=== PATIENT | female | born 1955 | race Caucasian/White ===

== ENCOUNTER 2019-11-17 16:25 | Emergency (ER) | payer MEDICARE ==
[~2019-11-17] VITALS: Ht 157.5 cm; Wt 60.3 kg
[2019-11-17] MEDS ORDERED: LIDOCAINE 1% 10 MG/ML, 20 ML MDV INJ ONE (19:15)
[2019-11-17] MEDS ORDERED: BACITRACIN 1 GM OINT TP ONE (19:15)
[2019-11-17] MEDS ORDERED: DIPH-TET-PERTUS Vaccine 0.5 ML VIAL (ADACEL) I.M. ONE (20:00)
[2019-11-17 21:05] VITALS: BP_SYST 126
== END 2019-11-17 21:05 | disposition home or self-care (01) ==
LOC: SED 16:25
DX: S61.215A Laceration without foreign body of left ring finger without damage to nail, initial encounter (principal); W45.8XXA Other foreign body or object entering through skin, initial encounter; Y93.89 Activity, other specified; Y92.89 Other specified places as the place of occurrence of the external cause; Y99.8 Other external cause status
CPT/HCPCS: 12001; 90471; 90715; 99283; J2001